=== PATIENT | female | born 1990 | race Two or more races ===

== ENCOUNTER 2020-07-15 09:13 | Inpatient (IN) | payer OTHER ==
[2020-07-15 10:31] VITALS: BMI 36.6
[2020-07-15 12:27] LABS: BASO % 0.3 % (0-2.0); EOS % 0.4 % (0-4.5); HEMATOCRIT 35.8 % (32.4-45.2); LYMPH % 20.2 % (8-40); MCH 29.5 pg (25.7-33.7); MCHC 33.5 g/dl (32.0-36.0); MEAN CELL VOLUME 87.9 fl (80-96); MEAN PLT VOLUME 9.3 fl (7.5-11.1); MONO % 6.3 % (3.8-10.2); NEUT % 72.8 % (42.8-82.8); PLATELET COUNT 250 K/MM3 (134-434); RBC 4.07 M/mm3 (3.60-5.2); RDW 13.3 % (11.6-15.6); WHITE BLOOD COUNT 10.4 K/mm3 (4.0-10.0)
[2020-07-15 12:30] LABS: INR 0.87 (0.83-1.09); PROTHROMBIN TIME (PATIENT) 10.6 SEC (9.7-13.0)
[2020-07-15 12:32] LABS: ACTIVATED PTT 26.2 SECONDS (25.2-36.5)
[2020-07-15 12:46] LABS: POTASSIUM 4.1 mmol/L (3.5-5.1)
[2020-07-15 12:47] LABS: CALCIUM 8.9 mg/dL (8.5-10.1)
[2020-07-15 12:48] LABS: BLOOD UREA NITROGEN 9.9 mg/dL (7-18)
[2020-07-15 12:51] LABS: CREATININE 0.5 mg/dL (0.55-1.3)
[2020-07-15] MEDS ORDERED: ELECTROLYTE-148 SOLN 1,000 ML IV SCH (15:15)
--- NOTE | 2020-07-15 15:21 | HP ---
Past Medical History - Primary Care Physician PCP:: Kae Heaton - Admission Chief Complaint: Lower abdominal pain History of Present Illness: 29 yo , YUMIKO [birth year]m EGA 40 weeks 1 day, presented with the above. No bleeding or leaking fluid per vagina. History Source: Patient Limitations to Obtaining History: No Limitations - Past Medical History ...: 4 ...Para: 2 ...Term: 2 ...: 0 ...Spon : 1 ...Induced : 0 ...Living Children: 2 ...Multiple Gestation: 0 ...EDC by Sono: 07/14/20 - Past Surgical History Hx Myomectomy: No Hx Transabdominal Cerclage: No - Smoking History Smoking history: Never smoked Have you smoked in the past 12 months: No - Alcohol/Substance Use Hx Alcohol Use: No - Social History Usual Living Arrangement: Yes: With Significant Other Do you think of yourself as: Straight/Heterosexual History of Recent Travel: No Home Medications - Allergies Allergies/Adverse Reactions: Allergies Allergy/AdvReac Type Severity Reaction Status Date / Time No Known Allergies Allergy Verified 07/15/20 10:19 - Home Medications Home Medications: Ambulatory Orders Vitamins (Sjr) - 1 tab PO DAILY 07/15/20 Family Medical History Family History: Denies Review of Systems - Review of Systems Constitutional: reports: No Symptoms Eyes: reports: No Symptoms HENT: reports: No Symptoms Neck: reports: No Symptoms Cardiovascular: reports: No Symptoms Respiratory: reports: No Symptoms Gastrointestinal: reports: No Symptoms Genitourinary: reports: No Symptoms Breasts: reports: No Symptoms Reported Musculoskeletal: reports: No Symptoms Integumentary: reports: No Symptoms Neurological: reports: No Symptoms Hematology/Lymphatic: reports: No Symptoms Psychiatric: reports: No Symptoms Physical Exam - Maternity Vital Signs: Vital Signs Temperature 98.1 F 07/15/20 14:00 Pulse Rate 67 07/15/20 15:00 Respiratory Rate 18 07/15/20 15:00 Blood Pressure 118/72 07/15/20 15:00 O2 Sat by Pulse Oximetry (%) Constitutional: Yes: Well Nourished Eyes: Yes: WNL HENT: Yes: WNL Neck: Yes: WNL Cardiovascular: Yes: WNL - Abdominal Exam/OB Fundal Height: 39 Number of Fetuses: Single Presentation: Vertex Contractions: Yes Regularity: Irregular Intensity: Mild Monitor Mode: External Heart Rate (range): 140 Heart Rate Location: [facility] Category: I Accelerations: Uniform Decelerations: None - Vaginal Exam/OB Vaginal Bleeding: No Speculum Exam: No Dilatation (cm): 3 Effacement (%): 50 Amniotic Membrane Status: Intact Presentation: Vertex/Position Station: -3 - Physical Exam Musculoskeletal: Yes: WNL Extremities: Yes: WNL Edema: No Integumentary: Yes: WNL ...Motor Strength: WNL Psychiatric: Yes: WNL - Labs Lab Results: CBC, BMP 07/15/20 11:50 07/15/20 11:50 Problem List - Problems (1) 40 weeks gestation of Code(s): Z3A.40 - 40 WEEKS GESTATION OF Assessment/Plan Full term gestation in labor Admit L and D for management.
--- NOTE | 2020-07-15 15:36 | PN ---
Progress Note (short form) - Note Progress Note: Patient comfortably in bed VSS, afebrile EFM - Baseline 140/min, moderate variability, accelerations, no decelerations Tocos - irregular Pelvic - 5cm/100%/-1, AROM performed. Clear fluid Plan - Full term gestation in labor Oxytocin augmentation Continue other management Problem List - Problems (1) 40 weeks gestation of Code(s): Z3A.40 - 40 WEEKS GESTATION OF
[2020-07-15] MEDS ORDERED: OXYTOCIN 30 UNITS in 0.9% NS 30 UNIT/500 ML INFUS.BAG IVPB SCH (15:45)
[2020-07-15] MEDS ORDERED: OXYTOCIN 20 UNITS in 0.9% NS 20 UNIT/1,000 ML INFUS.BAG IV ONE ×2 (16:06→17:28)
[2020-07-15] MEDS: OXYTOCIN 20 UNITS in 0.9% NS 20 UNIT/1,000 ML INFUS.BAG IV SCH ×2 (16:30→17:35)
[2020-07-15] MEDS ORDERED: ACETAMINOPHEN 325 MG TABLET (FP) ONE (16:45)
[2020-07-15] MEDS ORDERED: IBUPROFEN 600 MG TABLET (FP) PO ONE (16:45)
[2020-07-15] MEDS: ACETAMINOPHEN 325 MG TABLET (FP) PO PRN ×2 (17:00→21:07)
[2020-07-15] MEDS: IBUPROFEN 600 MG TABLET (FP) PO PRN ×2 (17:00→21:08)
[2020-07-15] MEDS ORDERED: BENZOCAINE 28 GM HEMORRHOIDAL OINTMENT TP PRN (17:30)
[2020-07-15] MEDS ORDERED: WITCH HAZEL 50% (TUCKS) 40 PAD/JAR PAD TP PRN (17:30)
[2020-07-15] MEDS ORDERED: BENZOCAINE 20% 57 GM BOTTLE TP PRN (17:30)
[2020-07-15] MEDS ORDERED: METHYLERGONOVINE MALEATE 0.2 MG/1 ML AMP IM PRN (17:30)
--- NOTE | 2020-07-15 18:04 | PN ---
Progress Note (short form) - Note Progress Note: Patient in bed. VSS, afebrile. EFM - Baseline 140/min, moderate variability, accelerations, no decelerations Tocos - q6 Pelvic - 7cm/100%/0/vertex Plan - Full term gestation in labor. Anticipate vaginal delivery. Problem List - Problems (1) 40 weeks gestation of Code(s): Z3A.40 - 40 WEEKS GESTATION OF
[2020-07-15 18:06] LABS: CORD BASE EXCESS -4.6 mmol/L (0-2); CORD HCO3 22.3 mmHg (20-29); CORD PCO2 47.7 mmHg (30-78); CORD pH 7.288 (7.14-7.44)
--- NOTE | 2020-07-15 18:07 | PN ---
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
[2020-07-16 07:51] LABS: BASO % 0.2 % (0-2.0); EOS % 0.7 % (0-4.5); HEMATOCRIT 33.2 % (32.4-45.2); HEMOGLOBIN 10.9 GM/dL (10.7-15.3); LYMPH % 25.9 % (8-40); MCH 28.7 pg (25.7-33.7); MCHC 32.9 g/dl (32.0-36.0); MEAN CELL VOLUME 87.3 fl (80-96); MEAN PLT VOLUME 8.9 fl (7.5-11.1); MONO % 8.2 % (3.8-10.2); PLATELET COUNT 224 K/MM3 (134-434); RDW 13.2 % (11.6-15.6); WHITE BLOOD COUNT 11.5 K/mm3 (4.0-10.0)
[2020-07-16] MEDS: DOCUSATE SODIUM 100 MG CAPSULE (FP) PO SCH (09:27)
[2020-07-16] MEDS: IBUPROFEN 600 MG TABLET (FP) PO PRN (09:27)
[2020-07-16] MEDS: ACETAMINOPHEN 325 MG TABLET (FP) PO PRN (09:27)
[2020-07-16] MEDS: PRENATAL VITAMINS W/ FOLIC ACID TABLET (FP) PO SCH (09:27)
--- NOTE | 2020-07-16 10:43 | PN ---
Progress Note (short form) - Note Progress Note: pt. without complaints. vss - af abd: soft, nt, fundus firm ve: intact, min lochia ext: no calf tenderness b/l a/p PPD 1 s/p stable cbc today history of covid + December 2019. currently asymptomatic and covid test neg on admission 07/15.
[2020-07-16] MEDS ORDERED: SENNOSIDES/DOCUSATE COMBO (SENNA PLUS) TABLET (UD) PO PRN (22:00)
[2020-07-17 09:39] VITALS: BP 100/49; PULSE 59; TEMP 98.5
[2020-07-17] MEDS: DOCUSATE SODIUM 100 MG CAPSULE (FP) PO SCH (10:02)
[2020-07-17] MEDS: PRENATAL VITAMINS W/ FOLIC ACID TABLET (FP) PO SCH (10:02)
--- NOTE | 2020-07-17 14:41 | DS ---
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: Vital Signs Temperature 98.5 F 07/17/20 09:00 Pulse Rate 59 L 07/17/20 09:00 Respiratory Rate 17 07/17/20 09:00 Blood Pressure 100/49 L 07/17/20 09:00 O2 Sat by Pulse Oximetry (%) 95 07/17/20 09:00 Constitutional: Yes: Calm ....Post : Yes: Uterus firm, Slight lochia rubra Breast(s): Yes: WNL Musculoskeletal: Yes: WNL Extremities: Yes: WNL Labs: CBC, BMP 07/16/20 07:00 07/15/20 11:50 Delivery - Delivery Vaginal Delivery: Spontaneous Type of Anesthesia: None Episiotomy/Laceration: None EBL (cc): 300 Delivery, Single - Stages of Labor Date 1st Stage Initiatied: 07/15/20 Time 1st Stage Initiated: 06:00 Date 2nd Stage Initiated: 07/15/20 Time 2nd Stage Initiated: 16:15 Date of Delivery: 07/15/20 Time of Delivery: 16:21 Time Placenta Delivered: 16:30 Placenta: Yes: Spontaneous, Normal Configuration - Condition of Infant 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 Present: No Infant Gender: Female Weight: 3.26 kg Position: Right, OA Total Hours ROM (Hrs/Mins): 1hr 45min - 1 Minute Total Score: 9 5 Minutes Total Score: 9 - [place] Feeding Plan Initial Plan: Elected not to breastfeed exclusively throughout hospitalization Remarks - Remarks Remarks: PP day 2 stable for discharge followup 6 wks Discharge Summary Problems reviewed: Yes Reason For Visit: LABOR ADMISSION Current Active Problems 40 weeks gestation of (Acute) Procedures: Principal: Plan of Treatment: followup 6 wks Condition: Good - Instructions Diet, Activity, Other Instructions: regular diet Disposition: HOME - Home Medications Comprehensive Discharge Medication List: Ambulatory Orders Vitamins (Sjr) - 1 tab PO DAILY 07/15/20
== END 2020-07-17 15:15 | disposition home or self-care (01) | DRG 560 ==
LOC: JDEL 09:13 → JLDR 10:20 → J3W 18:00
PROVIDERS: ADMIT Obstetrics & Gynecology; ATTEND Obstetrics & Gynecology
PROC: 10E0XZZ Delivery of Products of Conception, External Approach (ICD-10-PCS; principal; 2020-07-15)
PROC: 10907ZC Drainage of Amniotic Fluid, Therapeutic from Products of Conception, Via Natural or Artificial Opening (ICD-10-PCS; 2020-07-15)
DX: O80 Encounter for full-term uncomplicated delivery (principal); Z3A.40 40 weeks gestation of pregnancy; Z37.0 Single live birth; Z86.19 Personal history of other infectious and parasitic diseases
CPT/HCPCS: 36415; 36600; 59025; 59409; 80048; 82803; 85025; 85610; 85730; 86780; 86850; 86900; 86901; 87389; C9803; U0003